=== PATIENT | male | born 1970 | race Caucasian/White ===

== ENCOUNTER 2017-10-08 12:47 | Emergency (ER) | payer MEDICAID ==
[2017-10-08 12:59] VITALS: BP 145/97
== END 2017-10-08 14:37 | disposition home or self-care (01) ==
LOC: ED 12:47
DX: S61.412A Laceration without foreign body of left hand, initial encounter (principal); W26.9XXA Contact with unspecified sharp object(s), initial encounter; Y93.9 Activity, unspecified; Y92.89 Other specified places as the place of occurrence of the external cause; Y99.8 Other external cause status
CPT/HCPCS: 90715; J2001; Q0092

== ENCOUNTER 2017-10-10 10:09 | Emergency (ER) | payer MEDICAID ==
[2017-10-10 10:18] VITALS: BP 136/77
== END 2017-10-10 11:13 | disposition home or self-care (01) ==
LOC: ED 10:09
DX: S61.412D Laceration without foreign body of left hand, subsequent encounter (principal); W26.8XXD Contact with other sharp object(s), not elsewhere classified, subsequent encounter

== ENCOUNTER 2017-10-23 10:38 | Emergency (ER) | payer MEDICAID ==
[~2017-10-23] VITALS: Ht 165.1 cm; Wt 78.9 kg
[2017-10-23 10:42] VITALS: BP 119/72; Ht 165.1 cm; Wt 78.9 kg
== END 2017-10-23 12:21 | disposition home or self-care (01) ==
LOC: ED 10:38
DX: S61.412D Laceration without foreign body of left hand, subsequent encounter (principal); X58.XXXD Exposure to other specified factors, subsequent encounter